=== PATIENT | male | born 1985 | race Caucasian/White ===

== ENCOUNTER 2017-08-18 02:14 | Inpatient (IN) | payer BC ==
[~2017-08-18] VITALS: Ht 185.4 cm; Wt 92.6 kg
[2017-08-18] MEDS ORDERED: ONDANSETRON PF 4 MG/2 ML VIAL. IV ONE (02:30)
[2017-08-18] MEDS ORDERED: fentaNYL PF VIAL 100 MCG/2 ML VIAL IV ONE (02:30)
--- NOTE | 2017-08-18 02:30 | PHYS DOC ---
Past Medical History Additional Past Surgical Histo: ruptured achilles; amputated toe Additional Information: non smoker Social History Narrative: Adult General Chief Complaint Chief Complaint: CHEST PAIN HPI HPI Patient is a 32 year old male who presents with complaint of chest pain. He has been having right back chest pain "like it's stabbing me" since last week. This am at around 0130 AM he developed left sided chest pain. Very sharp. Pain is markedly worse with deep breathing. Is here from [place], [place]. Pain is severe. Review of Systems Review of Systems Constitutional: Denies fever or chills Eyes: Denies change in visual acuity, redness, or eye pain HENT: Denies nasal congestion or sore throat Respiratory: Denies cough; POS shortness of breath Cardiovascular: see HPI GI: Denies abdominal pain, nausea, vomiting, bloody stools or diarrhea : Denies dysuria or hematuria Musculoskeletal: Denies back pain or joint pain Integument: Denies rash or skin lesions Neurologic: Denies headache, focal weakness or sensory changes Family History Family History Negative for heart disease Current Medications Current Medications Current Medications Medications (Trade) Dose Ordered Sig/Kristopher Start Time Stop Time Status Last Admin Dose Admin Fentanyl Citrate (Fentanyl 2ml Vial) 50 mcg 1X ONCE 08/18/17 02:30 08/18/17 02:43 DC 08/18/17 02:41 50 MCG Hydromorphone HCl (Dilaudid) 1 mg 1X ONCE 08/18/17 04:00 08/18/17 04:01 DC 08/18/17 03:29 1 MG Info (Do NOT chart on this entry -- for MONITORING) 1 each PRN DAILY PRN 08/18/17 03:30 08/20/17 03:29 Iohexol (Omnipaque 300 Mg/ml) 100 ml 1X ONCE 08/18/17 03:30 08/18/17 03:31 DC Iohexol (Omnipaque 350 Mg/ml) 100 ml 1X ONCE 08/18/17 04:00 08/18/17 04:01 DC 08/18/17 03:33 100 ML Ondansetron HCl (Zofran) 4 mg 1X ONCE 08/18/17 02:30 08/18/17 02:43 DC 08/18/17 02:41 4 MG Sodium Chloride 500 ml @ 500 mls/hr 1X ONCE 08/18/17 03:30 08/18/17 04:29 DC 08/18/17 03:30 500 MLS/HR Allergies Allergies Allergies Coded Allergies Type Severity Reaction Last Updated Verified No Known Drug Allergies 08/18/17 No Physical Exam Physical Exam Constitutional: Well developed, well nourished, in obvious pain. HENT: Normocephalic, atraumatic, bilateral external ears normal, oropharynx moist, no oral exudates, nose normal. Eyes: PERRLA, EOMI, conjunctiva normal, no discharge. Neck: Normal range of motion, no tenderness, supple, no stridor. Cardiovascular:Heart rate regular rhythm, no murmur Lungs & Thorax: Bilateral breath sounds clear to auscultation Abdomen: Bowel sounds normal, soft, no tenderness, no masses, no pulsatile masses. Skin: Warm, dry, no erythema, no rash. Back: No tenderness, no CVA tenderness. Extremities: No tenderness, no cyanosis, no clubbing, ROM intact, no edema. Neurologic: Alert and oriented X 3, normal motor function, normal sensory function, no focal deficits noted. Current Patient Data Vital Signs Vital Signs Date Time Temp Pulse Resp B/P (MAP) Pulse Ox O2 Delivery O2 Flow Rate FiO2 08/18/17 02:25 97.3 58 18 138/84 (102) 96 Room Air 97.3 Lab Values Laboratory Tests Test 08/18/17 02:20 White Blood Count 16.2 x10^3/uL (4.0-11.0) H Red Blood Count 5.05 x10^6/uL (4.30-5.70) Hemoglobin 14.7 g/dL (13.0-17.5) Hematocrit 44.3 % (39.0-53.0) Mean Corpuscular Volume 88 fL (79-100) Mean Corpuscular Hemoglobin 29 pg (25-35) Mean Corpuscular Hemoglobin Concent 33 g/dL (31-37) Red Cell Distribution Width 13.5 % (11.5-14.5) Platelet Count 328 x10^3/uL (140-400) Neutrophils (%) (Auto) 67 % (31-73) Lymphocytes (%) (Auto) 23 % (24-48) L Monocytes (%) (Auto) 7 % (0-9) Eosinophils (%) (Auto) 3 % (0-3) Basophils (%) (Auto) 1 % (0-3) Neutrophils # (Auto) 10.8 x10^3uL (1.8-7.7) H Lymphocytes # (Auto) 3.6 x10^3/uL (1.0-4.8) Monocytes # (Auto) 1.1 x10^3/uL (0.0-1.1) Eosinophils # (Auto) 0.5 x10^3/uL (0.0-0.7) Basophils # (Auto) 0.1 x10^3/uL (0.0-0.2) D-Dimer (Libertad) 0.31 ug/mlFEU (0.00-0.50) Sodium Level 140 mmol/L (136-145) Potassium Level 3.8 mmol/L (3.5-5.1) Chloride Level 102 mmol/L (98-107) Carbon Dioxide Level 28 mmol/L (21-32) Anion Gap 10 (6-14) Blood Urea Nitrogen 17 mg/dL (8-26) Creatinine 1.1 mg/dL (0.7-1.3) Estimated GFR (Cockcroft-Gault) 76.6 BUN/Creatinine Ratio 15 (6-20) Glucose Level 91 mg/dL (70-99) Calcium Level 8.9 mg/dL (8.5-10.1) Magnesium Level 2.0 mg/dL (1.8-2.4) Total Bilirubin 0.2 mg/dL (0.2-1.0) Aspartate Amino Transferase (AST) 29 U/L (15-37) Alanine Aminotransferase (ALT) 32 U/L (16-63) Alkaline Phosphatase 62 U/L (46-116) Creatine Kinase 238 U/L (39-308) Creatine Kinase MB (Mass) 1.9 ng/mL (0.0-3.6) Creatine Kinase MB Relative Index 0.8 % (0-4) Troponin I Quantitative < 0.017 ng/mL (0.000-0.055) RT-Tld-D-Type Natriuretic Peptide 24 pg/mL (0-124) Total Protein 7.4 g/dL (6.4-8.2) Albumin 3.7 g/dL (3.4-5.0) Albumin/Globulin Ratio 1.0 (1.0-1.7) Lipase 122 U/L (73-393) Laboratory Tests 08/18/17 02:20 Laboratory Tests 08/18/17 02:20 EKG EKG EKG interpreted by myself at 0222 AM with NSR, rate 57, nonspecific ST changes. Radiology/Procedures Radiology/Procedures CXR interpreted by myself at 0245 AM: no acute infiltrate; no pleural effusion; no pneumothorax; normal mediastinum [facility] [address] [place] [address] IMAGING REPORT Signed PATIENT: DANIEL BROCK ACCOUNT: [id number] : 1985 LOCATION: ER AGE: 32 SEX: M EXAM STATUS: REG ER ORD. PHYSICIAN: JEREMY MEJIA MD REASON: severe chest pain; r/o dissection PROCEDURE: CT ANGIO CHEST ABD PELVIS CT angiography chest, abdomen and pelvis with contrast TECHNIQUE: Helical CT imaging of the chest, abdomen and pelvis with 3-D MIP reconstructions of the aorta and arteries characterize vascular anatomy and pathology with 90 mL Omnipaque 350 intravenous contrast. HISTORY: Severe chest pain. Possible aortic dissection. Chest findings: Mild motion artifact at the ascending aorta decreasing sensitivity to detect pathology dislocation. No thoracic aortic aneurysm or dissection evident. Heart size is normal. Pulmonary vessels and esophagus are unremarkable. At the AP window of the mediastinum there is an oblong 1.4 x 0.7 cm mildly dense or enhancing nodule or lymph node. No hilar adenopathy. Changes of thoracic degenerative disc disease with disc height loss at least mild endplate osteophytes and possible shallow disc bulges. Triangular density posterior right lower lobe likely atelectasis although a pneumonia is not excluded given the extensive opacity present. Linear density dependent left lower lobe likely discoid atelectasis. Abdomen findings: No aneurysm, dissection, stenosis or occlusion. Lumbar spine disc disease with probable cyst neural foraminal stenoses at L5-S1 due to endplate osteophytes and disc bulge and facet osteophytes at the lower lumbar spine as well. Liver, gallbladder, pancreas, adrenals, spleen and kidneys are unremarkable. No abdominal fluid or adenopathy. The left upper quadrant jejunum and duodenum demonstrates possible fold thickening differential from the remainder of the small bowel could indicate a enteritis. There is also moderate fluid distention of the stomach. No bowel obstruction evident. Appendix poorly visualized a segment of the proximal appendix is evident extending posterior of the cecum and is normal. Pelvis findings: No aneurysm, dissection, stenosis or occlusion of the iliac arteries. Bladder, prostate, rectum and bones are unremarkable. IMPRESSION: 1. Normal CT angiogram of the chest, abdomen and pelvis. No thoracoabdominal aortic aneurysm or dissection. 2. Mild fold thickening of the duodenum and jejunum may be indicative of enteritis. 3. Linear and triangular densities of the dependent lower lobes likely extensive atelectasis. Superimposed pneumonia is not excluded at the right lower lobe given the extent of opacity. Consider follow-up chest imaging after treatment to document that this resolves. 4. 1.4 x 0.7 cm mildly dense or enhancing lesion at the AP window of the mediastinum, perhaps a borderline enlarged lymph node. Exposure: One or more of the following individualized dose reduction techniques were utilized for this examination: 1. Automated exposure control 2. Adjustment of the mA and/or kV according to patient size 3. Use of iterative reconstruction technique Electronically signed by: Rafia Méndez MD (08/18/2017 4:26 AM) [facility] DICTATED and SIGNED BY: RAFIA MÉNDEZ MD DATE: 08/18/17403 CC: JEREMY MEJIA MD; NO PCP ~ Course & Med Decision Making Course & Med Decision Making Evaluated patient upon arrival. Patient in extreme pain. IV Fentanyl and Zofran. Concerned about dissection. WBC returned elevated. ? ruptured peptic ulcer. At 0305 AM: CT ordered. AT 0350 am: back from CT and awaiting results. At [address] results back. Consolidation bilateral lower lobes (no PE, no dissection); atelectasis vs pneumonia. With elev WBC c/w pneumonia. Blood culture drawn; Zosyn dosed. Second liter IVF dosed. Admit for pain control. Admit to Dr. Thomson. Differential diagnosis for chest pain includes but is not limited to: Pericarditis, myocarditis, endocarditis, pneumothorax, pneumonia, aortic dissection, esophageal spasm, esophagitis, peptic ulcer disease, acute coronary syndrome, mediastinitis, Boerhaave syndrome, musculoskeletal chest wall pain, costochondritis, intercostal strain, rib fracture, pulmonary contusion, pneumonitis, pleural effusion, pericardial effusion, pericardial tamponode, and pleurisy. MACE Scoring: History: Highly suspicious (2 points); Moderately suspicious (1 point). Slightly suspicious (0 point). EKG: ST segment depression (2 points). Nonspecific repolarization disturbance ( 1 point). normal (0 point) Age: Greater than 65 (2 points), 65-45 (1 point); less than 45 years old (0 points). Risk factors:> 3 risk factors (2 points), 1-2 risk factors (one point), no risk factors (0 point). Troponin: > 2 times normal (2 points), 1-2 times normal (1 point) normal limits (0 point) Total score: ____1__ Score % pts MACE/n MACE Policy 0-3: 32% 1.9% 0.05% Discharge 4-6: 51% 413/313 13% 1.3% Observation Risk management 7-10: 17% 518/1045 50% 2.8% Observation Treatment, CAGb RENETTA score for NSTEMI: Age 65: No=0; Yes=1 3 CAD risk factors: Family history of CAD, hypertension, hypercholesterolemia, diabetes, family history of CAD, or current smoker: No=0; Yes=1 Known CAD (stenosis 50%: No=0; Yes=1 ASA use in past 7 days: No=0; Yes=1 Severe angina ( 2 episodes in 24 hrs): No=0; Yes=[address] changes 0.5m: No=0; Yes=1 Positive cardiac marker: No=0; Yes=1 Score: 0 I have spoken with the patient and/or caregivers. I have explained the patient' s condition, diagnosis and treatment plan based on the information available to me at this time. I have answered the patient's and/or caregiver's questions and addressed any concerns. The patient and/or caregivers have as good an understanding of the patient's diagnosis, condition and treatment plan as can be expected at this point. The patient has been stabilized within the capability of the emergency department. The patient will be transported for further care and management or will be moved to an observation or inpatient service. I have communicated with the staff or medical practitioner taking over this patient's care. I have assessed this patient clinically and believe that their condition requires admission to the hospital. After consulting the admitting physician about this case, they have asked that I admit this patient to their service as an inpatient based on the clinical presentation and my impression. Dragon Disclaimer Dragon Disclaimer This electronic medical record was generated, in whole or in part, using a voice recognition dictation system. Departure Departure Impression: Primary Impression: Pneumonia Additional Impression: Chest pain Disposition: 09 ADMITTED INPATIENT Admitting Physician: Kimberly Farris Condition: STABLE Problem Qualifiers Primary Impression: Pneumonia Pneumonia type: due to unspecified organism Laterality: bilateral Lung location: lower lobe of lung Qualified Codes: J18.9 - Pneumonia, unspecified organism Additional Impression: Chest pain Chest pain type: pleurodynia Qualified Codes: R07.81 - Pleurodynia JEREMY MEJIA MD Aug 18, 2017 02:30
[2017-08-18 02:40] LABS: BASO # 0.1 x10^3/uL (0.0-0.2); BASO % 1 % (0-3); EOS % 3 % (0-3); HEMATOCRIT 44.3 % (39.0-53.0); HEMOGLOBIN 14.7 g/dL (13.0-17.5); LYMPH # 3.6 x10^3/uL (1.0-4.8); LYMPH % 23 % (24-48); MEAN CORPUSCULAR HEMOGLOBIN 29 pg (25-35); MEAN CORPUSCULAR HGB CONC 33 g/dL (31-37); MEAN CORPUSCULAR VOLUME 88 fL (79-100); MONO % 7 % (0-9); NEUT % 67 % (31-73); PLATELET COUNT 328 x10^3/uL (140-400); RED BLOOD COUNT 5.05 x10^6/uL (4.30-5.70); RED CELL DISTRIBUTION WIDTH 13.5 % (11.5-14.5); WHITE BLOOD COUNT 16.2 x10^3/uL (4.0-11.0)
[2017-08-18 03:07] LABS: ALBUMIN 3.7 g/dL (3.4-5.0); CALCIUM 8.9 mg/dL (8.5-10.1); CREATININE 1.1 mg/dL (0.7-1.3); GFR 76.6; POTASSIUM 3.8 mmol/L (3.5-5.1); TOTAL BILIRUBIN 0.2 mg/dL (0.2-1.0); TOTAL PROTEIN 7.4 g/dL (6.4-8.2)
[2017-08-18 03:25] LABS: CKMB MASS 1.9 ng/mL (0.0-3.6)
[2017-08-18] MEDS ORDERED: IOHEXOL 300 MG/ML 100ML VIAL. IV ONE (03:30)
[2017-08-18] MEDS ORDERED: IV NORMAL SALINE 1000ML BAG 500 ML IV ONE (03:30)
[2017-08-18] MEDS ORDERED: CONTRAST GIVEN MC PRN (03:30)
[2017-08-18] MEDS ORDERED: HYDROmorphone 2 MG/ML VIAL IV ONE (04:00)
[2017-08-18] MEDS ORDERED: IOHEXOL 350 MG/ML 100 ML VIAL. IV ONE (04:00)
--- NOTE | 2017-08-18 04:29 | RAD ---
CT angiography chest, abdomen and pelvis with contrast TECHNIQUE: Helical CT imaging of the chest, abdomen and pelvis with 3-D MIP reconstructions of the aorta and arteries characterize vascular anatomy and pathology with 90 mL Omnipaque 350 intravenous contrast. HISTORY: Severe chest pain. Possible aortic dissection. Chest findings: Mild motion artifact at the ascending aorta decreasing sensitivity to detect pathology dislocation. No thoracic aortic aneurysm or dissection evident. Heart size is normal. Pulmonary vessels and esophagus are unremarkable. At the AP window of the mediastinum there is an oblong 1.4 x 0.7 cm mildly dense or enhancing nodule or lymph node. No hilar adenopathy. Changes of thoracic degenerative disc disease with disc height loss at least mild endplate osteophytes and possible shallow disc bulges. Triangular density posterior right lower lobe likely atelectasis although a pneumonia is not excluded given the extensive opacity present. Linear density dependent left lower lobe likely discoid atelectasis. Abdomen findings: No aneurysm, dissection, stenosis or occlusion. Lumbar spine disc disease with probable cyst neural foraminal stenoses at L5-S1 due to endplate osteophytes and disc bulge and facet osteophytes at the lower lumbar spine as well. Liver, gallbladder, pancreas, adrenals, spleen and kidneys are unremarkable. No abdominal fluid or adenopathy. The left upper quadrant jejunum and duodenum demonstrates possible fold thickening differential from the remainder of the small bowel could indicate a enteritis. There is also moderate fluid distention of the stomach. No bowel obstruction evident. Appendix poorly visualized a segment of the proximal appendix is evident extending posterior of the cecum and is normal. Pelvis findings: No aneurysm, dissection, stenosis or occlusion of the iliac arteries. Bladder, prostate, rectum and bones are unremarkable. IMPRESSION: 1. Normal CT angiogram of the chest, abdomen and pelvis. No thoracoabdominal aortic aneurysm or dissection. 2. Mild fold thickening of the duodenum and jejunum may be indicative of enteritis. 3. Linear and triangular densities of the dependent lower lobes likely extensive atelectasis. Superimposed pneumonia is not excluded at the right lower lobe given the extent of opacity. Consider follow-up chest imaging after treatment to document that this resolves. 4. 1.4 x 0.7 cm mildly dense or enhancing lesion at the AP window of the mediastinum, perhaps a borderline enlarged lymph node. Exposure: One or more of the following individualized dose reduction techniques were utilized for this examination: 1. Automated exposure control 2. Adjustment of the mA and/or kV according to patient size 3. Use of iterative reconstruction technique Electronically signed by: Codey Méndez MD (08/18/2017 4:26 AM) [facility]
[2017-08-18] MEDS ORDERED: ONDANSETRON PF 4 MG/2 ML VIAL. IV PRN (04:45)
[2017-08-18] MEDS ORDERED: PIP/TAZO PER PHARMACY MC PRN (04:45)
[2017-08-18] MEDS ORDERED: IPRATRPIUM/ALBUTEROL 0.5/2.5MG 3 ML NEBU. NEB ONE (05:00)
[2017-08-18] MEDS ORDERED: ALBUTEROL SULFATE 2.5 MG/3 ML NEBU. NEB PRN (05:00)
[2017-08-18] MEDS ORDERED: IV NORMAL SALINE 1000ML BAG 1,000 ML IV ONE (05:00)
[2017-08-18] MEDS ORDERED: POTASSIUM CL 20MEQ D5-0.45NACL 1,000 ML IV ONE (05:00)
[2017-08-18] MEDS ORDERED: PIPERACILLIN/TAZOBACTAM 3.375 GM in IV NORMAL SALINE 50ML 50 ML IV ONE (05:00)
[2017-08-18] MEDS: MORPHINE SULFATE 2 MG/ML DISP.SYRIN. IV PRN ×3 (05:03→15:43)
[2017-08-18 05:45] VITALS: BP 113/48
[2017-08-18] MEDS ORDERED: INFLUENZA VAX SCREEN BY RX. MC ONE (06:45)
[2017-08-18 07:00] VITALS: BP 113/53
[2017-08-18] MEDS ORDERED: no home meds (07:01)
--- NOTE | 2017-08-18 07:04 | EKG ---
[facility] [address] [place] [address] Test Date: 2017-08-18 Test Time: 02:22:12 Pat Name: DANIEL BROCK Department: Room: Gender: M Head Sampler: : 1985 Requested By: JEREMY MEJIA Order Number: [id number] Reading MD: Measurements Intervals [place] Rate: 57 P: 30 CO: 160 QRS: 6 QRSD: 76 T: 26 QT: 398 QTc: 390 Interpretive Statements SINUS RHYTHM QRS(T) CONTOUR ABNORMALITY CONSIDER ANTEROSEPTAL MYOCARDIAL DAMAGE POSSIBLY ABNORMAL ECG RI6.01 No previous ECG available for comparison
--- NOTE | 2017-08-18 07:32 | RAD ---
Indication: Chest pain Technique: Upright portable chest radiograph was obtained. No comparison is available. Findings: The lungs are clear. The cardiopulmonary silhouette is within normal limits. The bony structures are intact. Leads overlie the patient. Impression: No active pulmonary disease.
[2017-08-18] MEDS ORDERED: FLU VACC QS2017-18 (36MOS+)/PF 0.5 ML SYRINGE. VAX IM ONE (09:00)
[2017-08-18] MEDS ORDERED: FAMOTIDINE 20 MG/2 ML VIAL IVP ONE (09:30)
--- NOTE | 2017-08-18 09:39 | PDOC1 ---
History and Physical Date of Admission Date of Admission DATE: 08/18/17 TIME: 09:33 History of Present Illness History of Present Illness Mr. Gardner, is a 32 year old male who admit overnight from ER with complaint of chest pain. he traveled here from [place], [place] for the Soccer game yesterday. Pain is severe 10/10 but intermittent, and initiated by deep breaths. he is a assistant basketball coach, and is very active, lifted initially last week, and seemed to hurt his right chest, then days later the left chest hurt. He has been having right back chest pain "like it's stabbing me" since last week. but pain was much more severe last night, he felt like he couldn't breath due to pain Past Medical History Cardiovascular: No pertinent hx Pulmonary: No pertinent hx GI: No pertinent hx Heme/Onc: No pertinent hx Hepatobiliary: No pertinent hx Psych: No pertinent hx Rheumatologic: No pertinent hx Infectious disease: No pertinent hx ENT: No pertinent hx Renal/: No pertinent hx Endocrine: No pertinent hx Dermatology: No pertinent hx Past Surgical History Past Surgical History: No pertinent history Family History Family History: No Significant Social History Smoke: No ALCOHOL: rare Drugs: None Current Problem List Problem List Problems Medical Problems: (1) Chest pain Status: Acute (2) Pneumonia Status: Acute Problems: Current Medications Current Medications Current Medications Fentanyl Citrate (Fentanyl 2ml Vial) 50 mcg 1X ONCE IV Last administered on 02:41; Start 08/18/17 at 02:30; Stop 08/18/17 at 02:43; Status DC Ondansetron HCl (Zofran) 4 mg 1X ONCE IV Last administered on 08/18/17 02:41 ; Start 08/18/17 at 02:30; Stop 08/18/17 at 02:43; Status DC Sodium Chloride 500 ml @ 500 mls/hr 1X ONCE IV Last administered on 03:30; Start 08/18/17 at 03:30; Stop 08/18/17 at 04:29; Status DC Iohexol (Omnipaque 300 Mg/ml) 100 ml 1X ONCE IV ; Start 08/18/17 at 03:30; Stop 08/18/17 at 03:31; Status DC Info (Do NOT chart on this entry -- for MONITORING) 1 each PRN DAILY PRN MC SEE COMMENTS; Start 08/18/17 at 03:30; Stop 08/20/17 at 03:29 Hydromorphone HCl (Dilaudid) 1 mg 1X ONCE IV Last administered on 08/18/17 03:29; Start 08/18/17 at 04:00; Stop 08/18/17 at 04:01; Status DC Iohexol (Omnipaque 350 Mg/ml) 100 ml 1X ONCE IV Last administered on 03:33; Start 08/18/17 at 04:00; Stop 08/18/17 at 04:01; Status DC Piperacillin Sod/ Tazobactam Sod 3.375 gm/Sodium Chloride 50 ml @ 100 mls/hr 1X ONCE IV Last administered on 08/18/17 04:55; Start 08/18/17 at 05:00; Stop 08/18/17 at 05:29; Status DC Sodium Chloride 1,000 ml @ 1,000 mls/hr 1X ONCE IV Last administered on 08/18 04:54; Start 08/18/17 at 05:00; Stop 08/18/17 at 05:59; Status DC Ondansetron HCl (Zofran) 4 mg PRN Q8HRS PRN IV NAUSEA/VOMITING; Start at 04:45; Stop 08/19/17 at 04:44 Morphine Sulfate 2 mg PRN Q2HR PRN IV SEVERE PAIN Last administered on 08:40; Start 08/18/17 at 04:45; Stop 08/19/17 at 04:44 Potassium Chloride/Dextrose/ Sod Cl 1,000 ml @ 125 mls/hr 1X ONCE IV Last administered on 08/18/17 05:56; Start 08/18/17 at 05:00; Stop 08/18/17 at 12 :59 Piperacillin Sod/ Tazobactam Sod (Zosyn Per Pharmacy) 1 each PRN DAILY PRN MC SEE COMMENTS; Start 08/18/17 at 04:45 Albuterol/ Ipratropium (Duoneb) 3 ml 1X ONCE NEB ; Start 08/18/17 at 05:00; Stop 08/18/17 at 05:01; Status DC Albuterol Sulfate (Ventolin Neb Soln) 2.5 mg PRN Q3HRS PRN NEB SHORTNESS OF BREATH; Start 08/18/17 at 05:00 Piperacillin Sod/ Tazobactam Sod 3.375 gm/Sodium Chloride 50 ml @ 100 mls/hr Q6HRS IV ; Start 08/18/17 at 12:00 Info (Do NOT chart on this placeholder) 1 each 1X ONCE MC ; Start 08/18/17 at 06:45; Stop 08/18/17 at 06:46; Status UNV Influenza Virus Vaccine Quadrival (Fluarix Quad [id number] Syringe) 0.5 ml ONCE ONCE VAX IM ; Start 08/18/17 at 09:00; Stop 08/18/17 at 09:01; Status DC Active Scripts Active Reported [no home meds] Allergies Allergies: Coded Allergies: No Known Drug Allergies (Unverified , 08/18/17) ROS General: No: Chills, Night Sweats, Fatigue, Malaise, Appetite, Other PSYCHOLOGICAL ROS: No: Anxiety, Behavioral Disorder, Concentration difficultie , Decreased libido, Depression, Disorientation, Hallucinations, Hostility, Irritablity, Memory difficulties, Mood Swings, Obsessive thoughts, Physical abuse, Sexual abuse, Sleep disturbances, Suicidal ideation, Other Eyes: No Blurry vision, No Decreased vision, No Double vision, No Dry eyes, No Excessive tearing, No Eye Pain, No Itchy Eyes, No Loss of vision, No Photophobia , No Scotomata, No Uses contacts, No Uses glasses, No Other HEENT: No: Heacaches, Visual Changes, Hearing change, Nasal congestion, Nasal discharge, Oral lesions, Sinus pain, Sore Throat, Epistaxis, Sneezing, Snoring, Tinnitus, Vertigo, Vocal changes, Other Respiratory: YES: Pleuritic Pain, No: Cough, Hemoptysis, Orthopnea, Shortness of breath, SOB with excertion, Sputum Changes, Stridor, Tachypnea, Wheezing, Other Cardiovascular: yes Chest Pain, No Palpitations, No Orthopnea, No Paroxysmal Noc. Dyspnea, No Edema, No Lt Headedness, No Other Gastrointestinal: No Nausea, No Vomiting, No Abdominal Pain, No Diarrhea, No Constipation, No Melena, No Hematochezia, No Other Genitourinary: No Dysuria, No Frequency, No Incontinence, No Hematuria, No Retention, No Discharge, No Urgency, No Pain, No Flank Pain, No Other, No , No , No , No , No , No , No Musculoskeletal: No Gait Disturbance, No Joint Pain, No Joint Stiffness, No Joint Swelling, No Muscle Pain, No Muscular Weakness, No Pain In:, No Swelling In:, No Other Neurological: No Behavorial Changes, No Bowel/Bladder ControlChng, No Confusion , No Dizziness, No Gait Disturbance, No Headaches, No Impaired Coord/balance, No Memory Loss, No Numbness/Tingling, No Seizures, No Speech Problems, No Tremors, No Visual Changes, No Weakness, No Other Skin: No Dry Skin, No Eczema, No Hair Changes, No Lumps, No Mole Changes, No Mottling, No Nail Changes, No Pruritus, No Rash, No Skin Lesion Changes, No Other, No Acne Physical Exam General: Alert, Cooperative, No acute distress HEENT: Atraumatic, PERRLA, EOMI Lungs: Normal air movement Heart: no gallops, no murmurs Rectal Exam: not examined Extremities: No clubbing, No edema Skin: No rashes, No significant lesion Neuro: Normal speech, Normal tone, Sensation intact, Cranial nerves 3-12 NL Psych/Mental Status: Mental status NL, Mood NL Vitals Vitals Vital Signs Date Time Temp Pulse Resp B/P (MAP) Pulse Ox O2 Delivery O2 Flow Rate FiO2 08/18/17 08:40 19 93 Room Air 08/18/17 07:00 98.0 50 113/53 (73) 98.0 Labs Labs Laboratory Tests Test 08/18/17 02:20 White Blood Count 16.2 x10^3/uL (4.0-11.0) Red Blood Count 5.05 x10^6/uL (4.30-5.70) Hemoglobin 14.7 g/dL (13.0-17.5) Hematocrit 44.3 % (39.0-53.0) Mean Corpuscular Volume 88 fL (79-100) Mean Corpuscular Hemoglobin 29 pg (25-35) Mean Corpuscular Hemoglobin Concent 33 g/dL (31-37) Red Cell Distribution Width 13.5 % (11.5-14.5) Platelet Count 328 x10^3/uL (140-400) Neutrophils (%) (Auto) 67 % (31-73) Lymphocytes (%) (Auto) 23 % (24-48) Monocytes (%) (Auto) 7 % (0-9) Eosinophils (%) (Auto) 3 % (0-3) Basophils (%) (Auto) 1 % (0-3) Neutrophils # (Auto) 10.8 x10^3uL (1.8-7.7) Lymphocytes # (Auto) 3.6 x10^3/uL (1.0-4.8) Monocytes # (Auto) 1.1 x10^3/uL (0.0-1.1) Eosinophils # (Auto) 0.5 x10^3/uL (0.0-0.7) Basophils # (Auto) 0.1 x10^3/uL (0.0-0.2) D-Dimer (Libertad) 0.31 ug/mlFEU (0.00-0.50) Sodium Level 140 mmol/L (136-145) Potassium Level 3.8 mmol/L (3.5-5.1) Chloride Level 102 mmol/L (98-107) Carbon Dioxide Level 28 mmol/L (21-32) Anion Gap 10 (6-14) Blood Urea Nitrogen 17 mg/dL (8-26) Creatinine 1.1 mg/dL (0.7-1.3) Estimated GFR (Cockcroft-Gault) 76.6 BUN/Creatinine Ratio 15 (6-20) Glucose Level 91 mg/dL (70-99) Calcium Level 8.9 mg/dL (8.5-10.1) Magnesium Level 2.0 mg/dL (1.8-2.4) Total Bilirubin 0.2 mg/dL (0.2-1.0) Aspartate Amino Transf (AST/SGOT) 29 U/L (15-37) Alanine Aminotransferase (ALT/SGPT) 32 U/L (16-63) Alkaline Phosphatase 62 U/L (46-116) Creatine Kinase 238 U/L (39-308) Creatine Kinase MB (Mass) 1.9 ng/mL (0.0-3.6) Creatine Kinase MB Relative Index 0.8 % (0-4) Troponin I Quantitative < 0.017 ng/mL (0.000-0.055) BK-Piy-W-Type Natriuretic Peptide 24 pg/mL (0-124) Total Protein 7.4 g/dL (6.4-8.2) Albumin 3.7 g/dL (3.4-5.0) Albumin/Globulin Ratio 1.0 (1.0-1.7) Lipase 122 U/L (73-393) Laboratory Tests Test 08/18/17 02:20 White Blood Count 16.2 x10^3/uL (4.0-11.0) Red Blood Count 5.05 x10^6/uL (4.30-5.70) Hemoglobin 14.7 g/dL (13.0-17.5) Hematocrit 44.3 % (39.0-53.0) Mean Corpuscular Volume 88 fL (79-100) Mean Corpuscular Hemoglobin 29 pg (25-35) Mean Corpuscular Hemoglobin Concent 33 g/dL (31-37) Red Cell Distribution Width 13.5 % (11.5-14.5) Platelet Count 328 x10^3/uL (140-400) Neutrophils (%) (Auto) 67 % (31-73) Lymphocytes (%) (Auto) 23 % (24-48) Monocytes (%) (Auto) 7 % (0-9) Eosinophils (%) (Auto) 3 % (0-3) Basophils (%) (Auto) 1 % (0-3) Neutrophils # (Auto) 10.8 x10^3uL (1.8-7.7) Lymphocytes # (Auto) 3.6 x10^3/uL (1.0-4.8) Monocytes # (Auto) 1.1 x10^3/uL (0.0-1.1) Eosinophils # (Auto) 0.5 x10^3/uL (0.0-0.7) Basophils # (Auto) 0.1 x10^3/uL (0.0-0.2) D-Dimer (Libertad) 0.31 ug/mlFEU (0.00-0.50) Sodium Level 140 mmol/L (136-145) Potassium Level 3.8 mmol/L (3.5-5.1) Chloride Level 102 mmol/L (98-107) Carbon Dioxide Level 28 mmol/L (21-32) Anion Gap 10 (6-14) Blood Urea Nitrogen 17 mg/dL (8-26) Creatinine 1.1 mg/dL (0.7-1.3) Estimated GFR (Cockcroft-Gault) 76.6 BUN/Creatinine Ratio 15 (6-20) Glucose Level 91 mg/dL (70-99) Calcium Level 8.9 mg/dL (8.5-10.1) Magnesium Level 2.0 mg/dL (1.8-2.4) Total Bilirubin 0.2 mg/dL (0.2-1.0) Aspartate Amino Transf (AST/SGOT) 29 U/L (15-37) Alanine Aminotransferase (ALT/SGPT) 32 U/L (16-63) Alkaline Phosphatase 62 U/L (46-116) Creatine Kinase 238 U/L (39-308) Creatine Kinase MB (Mass) 1.9 ng/mL (0.0-3.6) Creatine Kinase MB Relative Index 0.8 % (0-4) Troponin I Quantitative < 0.017 ng/mL (0.000-0.055) AR-Cln-E-Type Natriuretic Peptide 24 pg/mL (0-124) Total Protein 7.4 g/dL (6.4-8.2) Albumin 3.7 g/dL (3.4-5.0) Albumin/Globulin Ratio 1.0 (1.0-1.7) Lipase 122 U/L (73-393) VTE Prophylaxis Ordered VTE Prophylaxis Devices: No VTE Pharmacological Prophylaxi: No Assessment/Plan Assessment/Plan acute chest pain, pleurisy with atelectasis vs. pneumonia on CXR consult PULM broad abx started for pneumonia in ER, not sure, cont treatment leukocytosis without any other criteria for sirs, could be viral pleurisy CT scan showed thickened esophagus, try H2 alfa to PPI, admitted overnight, will try to ANTHONY Smith MD Aug 18, 2017 09:39
[2017-08-18] MEDS: PANTOPRAZOLE 40 MG TABLET.DR. PO SCH ×2 (10:00→15:48)
[2017-08-18 11:00] VITALS: BP 123/55
[2017-08-18] MEDS: PIPERACILLIN/TAZOBACTAM 3.375 GM in IV NORMAL SALINE 50ML 50 ML IV SCH ×2 (11:45→18:08)
[2017-08-18 15:00] VITALS: BP 112/71
--- NOTE | 2017-08-18 16:23 | PDOC ---
PULMONARY PROGRESS NOTES Vitals Vital Signs Date Time Temp Pulse Resp B/P (MAP) Pulse Ox O2 Delivery O2 Flow Rate FiO2 08/18/17 15:43 20 93 Room Air 08/18/17 11:00 98.2 46 123/55 (77) 98.2 Labs Laboratory Tests Test 08/18/17 02:20 White Blood Count 16.2 x10^3/uL (4.0-11.0) Red Blood Count 5.05 x10^6/uL (4.30-5.70) Hemoglobin 14.7 g/dL (13.0-17.5) Hematocrit 44.3 % (39.0-53.0) Mean Corpuscular Volume 88 fL (79-100) Mean Corpuscular Hemoglobin 29 pg (25-35) Mean Corpuscular Hemoglobin Concent 33 g/dL (31-37) Red Cell Distribution Width 13.5 % (11.5-14.5) Platelet Count 328 x10^3/uL (140-400) Neutrophils (%) (Auto) 67 % (31-73) Lymphocytes (%) (Auto) 23 % (24-48) Monocytes (%) (Auto) 7 % (0-9) Eosinophils (%) (Auto) 3 % (0-3) Basophils (%) (Auto) 1 % (0-3) Neutrophils # (Auto) 10.8 x10^3uL (1.8-7.7) Lymphocytes # (Auto) 3.6 x10^3/uL (1.0-4.8) Monocytes # (Auto) 1.1 x10^3/uL (0.0-1.1) Eosinophils # (Auto) 0.5 x10^3/uL (0.0-0.7) Basophils # (Auto) 0.1 x10^3/uL (0.0-0.2) D-Dimer (Libertad) 0.31 ug/mlFEU (0.00-0.50) Sodium Level 140 mmol/L (136-145) Potassium Level 3.8 mmol/L (3.5-5.1) Chloride Level 102 mmol/L (98-107) Carbon Dioxide Level 28 mmol/L (21-32) Anion Gap 10 (6-14) Blood Urea Nitrogen 17 mg/dL (8-26) Creatinine 1.1 mg/dL (0.7-1.3) Estimated GFR (Cockcroft-Gault) 76.6 BUN/Creatinine Ratio 15 (6-20) Glucose Level 91 mg/dL (70-99) Calcium Level 8.9 mg/dL (8.5-10.1) Magnesium Level 2.0 mg/dL (1.8-2.4) Total Bilirubin 0.2 mg/dL (0.2-1.0) Aspartate Amino Transf (AST/SGOT) 29 U/L (15-37) Alanine Aminotransferase (ALT/SGPT) 32 U/L (16-63) Alkaline Phosphatase 62 U/L (46-116) Creatine Kinase 238 U/L (39-308) Creatine Kinase MB (Mass) 1.9 ng/mL (0.0-3.6) Creatine Kinase MB Relative Index 0.8 % (0-4) Troponin I Quantitative < 0.017 ng/mL (0.000-0.055) GD-Mma-E-Type Natriuretic Peptide 24 pg/mL (0-124) Total Protein 7.4 g/dL (6.4-8.2) Albumin 3.7 g/dL (3.4-5.0) Albumin/Globulin Ratio 1.0 (1.0-1.7) Lipase 122 U/L (73-393) Laboratory Tests Test 08/18/17 02:20 White Blood Count 16.2 x10^3/uL (4.0-11.0) Red Blood Count 5.05 x10^6/uL (4.30-5.70) Hemoglobin 14.7 g/dL (13.0-17.5) Hematocrit 44.3 % (39.0-53.0) Mean Corpuscular Volume 88 fL (79-100) Mean Corpuscular Hemoglobin 29 pg (25-35) Mean Corpuscular Hemoglobin Concent 33 g/dL (31-37) Red Cell Distribution Width 13.5 % (11.5-14.5) Platelet Count 328 x10^3/uL (140-400) Neutrophils (%) (Auto) 67 % (31-73) Lymphocytes (%) (Auto) 23 % (24-48) Monocytes (%) (Auto) 7 % (0-9) Eosinophils (%) (Auto) 3 % (0-3) Basophils (%) (Auto) 1 % (0-3) Neutrophils # (Auto) 10.8 x10^3uL (1.8-7.7) Lymphocytes # (Auto) 3.6 x10^3/uL (1.0-4.8) Monocytes # (Auto) 1.1 x10^3/uL (0.0-1.1) Eosinophils # (Auto) 0.5 x10^3/uL (0.0-0.7) Basophils # (Auto) 0.1 x10^3/uL (0.0-0.2) D-Dimer (Libertad) 0.31 ug/mlFEU (0.00-0.50) Sodium Level 140 mmol/L (136-145) Potassium Level 3.8 mmol/L (3.5-5.1) Chloride Level 102 mmol/L (98-107) Carbon Dioxide Level 28 mmol/L (21-32) Anion Gap 10 (6-14) Blood Urea Nitrogen 17 mg/dL (8-26) Creatinine 1.1 mg/dL (0.7-1.3) Estimated GFR (Cockcroft-Gault) 76.6 BUN/Creatinine Ratio 15 (6-20) Glucose Level 91 mg/dL (70-99) Calcium Level 8.9 mg/dL (8.5-10.1) Magnesium Level 2.0 mg/dL (1.8-2.4) Total Bilirubin 0.2 mg/dL (0.2-1.0) Aspartate Amino Transf (AST/SGOT) 29 U/L (15-37) Alanine Aminotransferase (ALT/SGPT) 32 U/L (16-63) Alkaline Phosphatase 62 U/L (46-116) Creatine Kinase 238 U/L (39-308) Creatine Kinase MB (Mass) 1.9 ng/mL (0.0-3.6) Creatine Kinase MB Relative Index 0.8 % (0-4) Troponin I Quantitative < 0.017 ng/mL (0.000-0.055) FJ-Ibr-L-Type Natriuretic Peptide 24 pg/mL (0-124) Total Protein 7.4 g/dL (6.4-8.2) Albumin 3.7 g/dL (3.4-5.0) Albumin/Globulin Ratio 1.0 (1.0-1.7) Lipase 122 U/L (73-393) Medications Active Scripts Medications Dose Route/Sig Max Daily Dose Days Date Category [no home meds] 08/18/17 Reported Impression . ok to d/c follow up with pcp with a repeat ct in 4 months, possible enlarged node thank IVANIA LOVE MD Aug 18, 2017 16:23
[2017-08-18] MEDS ORDERED: OXYC-323 PO (17:26)
[2017-08-18] MEDS ORDERED: FAMO-63 PO (17:26)
[2017-08-18] MEDS ORDERED: IBUP-1060 PO (17:26)
--- NOTE | 2017-08-18 21:53 | CONS ---
DATE OF CONSULTATION: 08/18/2017 ATTENDING PHYSICIAN: Dr. Aquino. REASON FOR CONSULTATION: The patient is seen in pulmonary consultation at the request of Dr. Aquino for abnormal CT of the chest. HISTORY OF PRESENT ILLNESS: The patient is a 32-year-old who was admitted for increasing shortness of breath, chest pain. A 10/10 pain increased with deep inspiration, some shortness of breath. The patient had a workup including CT chest. I reviewed the CT chest, which revealed no evidence of pulmonary emboli. He did have a mildly dense enhancing lesion at the AP window. I was asked to see him in consultation. The patient has never smoked. Denies any pulmonary disorders. PAST SURGICAL HISTORY: Otherwise, unremarkable. ALLERGIES: No known drug allergies. SOCIAL HISTORY: He denies smoking. He exercises on a regular basis. He is a nutritional health coach. In fact, a couple of days prior to his chest discomfort, he was working out mostly in his upper torso and chest. REVIEW OF SYSTEMS: As indicated above, otherwise, a 10-point system was reviewed and negative. ALLERGIES: No known drug allergies. FAMILY HISTORY: No family history of lung disorders. PHYSICAL EXAMINATION: VITAL SIGNS: O2 saturation on room air was 93%. HEENT: Eyes, the sclerae were nonicteric. NECK: Jugular venous distention was not elevated. No lymphadenopathy. CHEST: Full expansion. LUNGS: Adequate airway flow, no wheezes. CARDIOVASCULAR: Regular rate and rhythm with S1, S2, no S3. ABDOMEN: Soft, nontender, nondistended. EXTREMITIES: No clubbing, cyanosis or edema. NEUROLOGIC: The patient was awake, alert, following commands. A detailed neuro exam was not performed. LABORATORY DATA: Reviewed. Electrolytes were normal. INR and D-dimer was not elevated. IMPRESSION: 1. Abnormal CT of the chest revealing possible aortic pulmonary window density compatible with adenopathy in a nonsmoker. 2. Chest pain, suspect costochondritis and reflux. PLAN: The patient is okay to discharge home, he lives in [place]. I spoke with his , gave her my business card. I recommend that he undergo a repeat CT of the chest with contrast in 4 months. I do appreciate the privilege in sharing in his care. any further assistance. SABATO SISILLO, MD DR: Kasey JOB#: [id number] / [id number]
== END 2017-08-18 20:12 | disposition home or self-care (01) | DRG 313 ==
LOC: ER 02:14 → 6 SOUTH 04:40
PROVIDERS: ADMIT Internal Medicine; ATTEND Internal Medicine
DX: R07.89 Other chest pain (principal); J18.9 Pneumonia, unspecified organism; Z89.429 Acquired absence of other toe(s), unspecified side
CPT/HCPCS: 36415; 71010; 71275; 74174; 80053; 82550; 82553; 83690; 83735; 83880; 84484; 85025; 85379; 87040; 90686; 93005; 94250; 94760; 96361; 96365; 96375; J1170; J2270; J2405; J2543; J3010; J7030; Q9967; S0028; 99285-25